=== PATIENT | male | born 1975 | race Caucasian/White ===

== ENCOUNTER → 2018-06-16 | Emergency (ER) | payer OTHER ==
[~2018-06-16] VITALS: Ht 177.8 cm; Wt 88.5 kg
[~2018-06-16] MED LIST: COZAAR50 MG; JANUMET XR 50-1 EAC1; LIPITOR40 MG
== END | disposition home or self-care (01) ==
LOC: ER 15:53
DX: N20.0 Calculus of kidney (principal); R10.32 Left lower quadrant pain

== ENCOUNTER 2018-06-19 17:31 | Outpatient (CLI) | payer OTHER | END 2018-06-19 17:43 | disposition home or self-care (01) | LOC: RAD 17:31 | DX: N20.0 Calculus of kidney (principal) ==

== ENCOUNTER 2018-06-23 08:03 | Day surgery (SDC) | payer OTHER | END 2018-06-23 13:50 | disposition home or self-care (01) | LOC: CIR.AMB 08:03 → CIR LITO 08:03 → CIR.AMB 13:28 → CIR LITO 13:50 | DX: N20.0 Calculus of kidney (principal) ==

== ENCOUNTER 2018-07-27 11:42 | Outpatient (CLI) | payer OTHER | END 2018-07-27 11:49 | disposition home or self-care (01) | LOC: RAD 11:42 | DX: N20.0 Calculus of kidney (principal) ==